=== PATIENT | female | born 1965 | race Hispanic/Latino ===

== ENCOUNTER 2017-07-30 17:04 | Emergency (ER) | payer MEDICAID ==
[2017-07-30] MEDS ORDERED: HUMALOG100 MG/ML SC (17:36)
[2017-07-30] MEDS ORDERED: TRESIBA FL200 UNIT/M SC (17:38)
[2017-07-30] MEDS ORDERED: GLYXAMBI 10-5 M1 TAB PO (17:54)
[2017-07-30] MEDS ORDERED: PERCOCET 5/325M1 TAB PO (17:57)
[2017-07-30] MEDS ORDERED: FLEXERIL PO (17:57)
[2017-07-30] MEDS ORDERED: MOTRIN800 MG PO (17:57)
[2017-07-30] MEDS ORDERED: CYMBALTA60 MG PO (18:11)
[2017-07-30] MEDS ORDERED: CYMBALTA30 MG PO (18:12)
[2017-07-30] MEDS ORDERED: NEURONTIN400 MG PO (18:12)
[2017-07-30] MEDS ORDERED: NEURONTIN800 MG PO (18:12)
[2017-07-30] MEDS ORDERED: TENCON 50-325 M1 TAB PO (18:13)
[2017-07-30] MEDS ORDERED: SINGULAIR10 MG PO (18:14)
[2017-07-30] MEDS ORDERED: TOPAMAX50 MG PO (18:14)
[2017-07-30] MEDS ORDERED: ZYRTEC10 MG PO (18:14)
[2017-07-30] MEDS ORDERED: OMEPRAZOLE20 M1 PO (18:15)
[2017-07-30] MEDS ORDERED: SYMBICORT1 AE1 IN (18:15)
[2017-07-30] MEDS ORDERED: LASIX40 MG PO (18:16)
[2017-07-30] MEDS ORDERED: CARAFATE1 GM PO (18:16)
[2017-07-30] MEDS ORDERED: OMEGA 31000 MG PO (18:17)
[2017-07-30] MEDS ORDERED: LIPITOR20 MG PO (18:18)
[2017-07-30 18:30] VITALS: BP 104/72
== END 2017-07-30 18:30 | disposition home or self-care (01) | DRG 563 ==
LOC: ED 17:04
DX: S43.402A Unspecified sprain of left shoulder joint, initial encounter (principal); S30.0XXA Contusion of lower back and pelvis, initial encounter; W01.0XXA Fall on same level from slipping, tripping and stumbling without subsequent striking against object, initial encounter; Y93.01 Activity, walking, marching and hiking; Y92.009 Unspecified place in unspecified non-institutional (private) residence as the place of occurrence of the external cause

== ENCOUNTER 2017-08-15 14:06 | Emergency (ER) | payer OTHER ==
[~2017-08-15] VITALS: Ht 162.6 cm; Wt 72.7 kg
[~2017-08-15 14:06] MED LIST: CARAFATE1 GM PO; CYMBALTA30 MG PO; CYMBALTA60 MG PO; FLEXERIL PO; GLYXAMBI 10-5 M1 TAB PO; HUMALOG100 MG/ML SC; LASIX40 MG PO; LIPITOR20 MG PO; MOTRIN800 MG PO; NEURONTIN400 MG PO; NEURONTIN800 MG PO; OMEGA 31000 MG PO; OMEPRAZOLE20 M1 PO; PERCOCET 5/325M1 TAB PO; SINGULAIR10 MG PO; SYMBICORT1 AE1 IN; TENCON 50-325 M1 TAB PO; TOPAMAX50 MG PO; TRESIBA FL200 UNIT/M SC; ZYRTEC10 MG PO
[2017-08-15 15:43] LABS: HEMATOCRIT 44.5 % (37.0-47.0); HEMOGLOBIN 15.8 g/dl (12.0-16.0); IMMATURE GRANULOCYTES 0.5 % (0.0-1.0); MEAN CELL VOLUME 85.4 fL CALC (80.0-100.0); MEAN CORPUSCULAR HGB 30.3 pG CALC (26.0-32.0); MEAN CORPUSCULAR HGB CONC 35.5 g/L CALC (32.0-36.0); NEUT# 6.24 thou/uL (2.00-7.15); RED BLOOD COUNT 5.21 mill/uL (4.20-5.60); RED CELL DISTRI WIDTH 11.9 % (11.5-15.5)
[2017-08-15 15:48] LABS: ALBUMIN 3.8 g/dL (3.2-5.0); ALKALINE PHOSPHATASE 153 u/l (38-126); ANION GAP 16 (6-22 (CALC)); BILIRUBIN, TOTAL 0.7 mg/dL (0.0-1.4); BUN 13 mg/dL (7-17); BUN/CREATININE RATIO 18 (12-20 (CALC)); CALCIUM 9.9 mg/dL (8.4-10.2); CARBON DIOXIDE 28 mmol/l (22-30); CHLORIDE 92 mmol/l (95-108); CREATININE 0.7 mg/dL (0.5-1.0); GFR > 60 ML/MIN (>=60 (CALC)); GFR FOR AFR.AMER. > 60 ML/MIN (>=60 (CALC)); POTASSIUM 4.2 mmol/l (3.5-5.1); SGOT/AST 22 u/l (14-36); SGPT/ALT 49 u/l (9-52); SODIUM 131 mmol/l (137-146); TOTAL PROTEIN 6.9 g/dL (6.3-8.2)
[2017-08-15 15:57] LABS: GLUCOSE 685 mg/dL (65-105)
[2017-08-15] MEDS ORDERED: GLYXAMBI 25-5 M1 TAB (16:15)
[2017-08-15] MEDS ORDERED: KLONOPIN1 MG PO (16:24)
[2017-08-15] MEDS ORDERED: KLONOPIN0.5 MG PO (16:24)
[2017-08-15 19:49] VITALS: BP 114/76
== END 2017-08-15 19:49 | disposition home or self-care (01) | DRG 639 ==
LOC: ED 14:06
PROVIDERS: Emergency Medicine
DX: E11.65 Type 2 diabetes mellitus with hyperglycemia (principal); E11.40 Type 2 diabetes mellitus with diabetic neuropathy, unspecified; I10 Essential (primary) hypertension; Z91.11 Patient's noncompliance with dietary regimen; Z91.14 Patient's other noncompliance with medication regimen; Z79.4 Long term (current) use of insulin